=== PATIENT | male | born 1970 | race Caucasian/White ===

== ENCOUNTER 2016-09-05 01:51 | Emergency (ER) | payer OTHER ==
[~2016-09-05 01:51] MED LIST: HYDROXYZINE50 MG PO
[2016-09-05 02:02] VITALS: BP 121/80
--- NOTE | 2016-09-05 02:22 | ED EAR COMPLAINT ---
History of Present Illness General Chief Complaint: Ear Complaints Stated Complaint: RIGHT EAR PAIN Source: patient, family, old records Exam Limitations: no limitations Vital Signs & Intake/Output Vital Signs & Intake/Output Vital Signs Date Time Temp Pulse Resp B/P Pulse O2 O2 Flow FiO2 Ox Delivery Rate 09/05 0202 98.7 67 22 121/80 98 Allergies Coded Allergies: MDX - Poison Deloris Extract, Alum Prec (POISON DELORIS EXTRACT, ALUM PRECIPITAT) ( Intermediate, HIVES 05/23/15) Reconcile Medications Amoxicillin 875 MG TABLET 1 TAB PO BID sinusitis Ibuprofen 600 MG TABLET 1 TAB PO Q6PRN PRN pain with food Neomycin/Polymyxin B Sulf/Hc (Vsyopbkl-Ravdgxhof-Ok Ear Susp) 3.5 MG/ML-10,000 UNIT/ML-1 % DROPS.SUSP 4 GTT OT TID otitis externa Oxymetazoline HCl (Afrin) 0.05 % SPRAY 2 SPRAY NASB BID sinusitis Triage Note: PER PT RT EAR PAIN X 1.5 DAYS ACHY NO DRAINAGE Triage Nurses Notes Reviewed? yes Onset: 2 days Duration: day(s):, constant, continues in ED Timing: recent history Severity: moderate No Modifying Factors: none Associated Symptoms: cough HPI: 1 week prior to admission patient complains of nasal congestion. 2 days prior to admission patient complains of right ear pain sinus pressure sore throat with chronic tinnitus. He denies fever chills chest pain shortness of breath headache dysuria rash bleeding Past History Travel History Traveled to [place] past 21 day No Medical History Any Pertinent Medical History? see below for history Neurological: NONE EENT: NONE Cardiovascular: hypertension Respiratory: asthma, bronchitis Gastrointestinal: NONE Hepatic: NONE Renal: NONE Musculoskeletal: NONE Psychiatric: NONE Endocrine: NONE Surgical History Surgical History: non-contributory Psychosocial History What is your primary language Micronesian Tobacco Use: Current Not Daily Daily Tobacco Use Amount/Type: => 5 Cigarettes daily Family History Hx Contributory? No Review of Systems Review of Systems Constitutional: Reports: see HPI, malaise. EENTM: Reports: see HPI, ear pain, nasal congestion. Respiratory: Reports: see HPI, cough. Cardiovascular: Reports: no symptoms. GI: Reports: no symptoms. Genitourinary: Reports: no symptoms. Musculoskeletal: Reports: no symptoms. Skin: Reports: no symptoms. Neurological/Psychological: Reports: no symptoms. Hematologic/Endocrine: Reports: no symptoms. Immunologic/Allergic: Reports: no symptoms. All Other Systems: Reviewed and Negative Physical Exam Physical Exam General Appearance: well developed/nourished, alert, awake, anxious, mild distress Head: atraumatic Eyes: Bilateral: normal appearance, PERRL, EOMI. Ears: Left: canal normal, Tympanic normal. Right: erythema (EAC), swelling, Tympanic dull. Nose: discharge Mouth/Throat: pharynx swelling Neck: normal inspection, supple, lymphadenopathy (R), lymphadenopathy (L) Cardiovascular/Respiratory: normal breath sounds, regular rate/rhythm Back: normal inspection, normal range of motion Neurologic/Psych: awake, alert, oriented x 3, normal mood/affect Skin: intact, normal color, warm/dry Progress Differential Diagnoses I considered the following diagnoses in my evaluation of the patient: sinusitis OM OE Plan of Care: Current Medications Sig/Roger Start time Last Medication Dose Stop Time Status Admin Amoxicillin 750 MG ONCE ONE 09/05 229 UNVr (Amoxil) 09/05 230 Oxymetazoline HCl 2 SPRAY ONCE ONE 09/05 229 UNVr (Afrin) 09/05 230 Initial ED EKG: none Departure Departure Time of Disposition: 220 Disposition: HOME OR SELF CARE Condition: Stable Clinical Impression Primary Impression: Otitis media Qualifiers: Otitis media type: unspecified Laterality: right Chronicity: unspecified Qualified Code: H66.91 - Otitis media, unspecified, right ear Secondary Impressions: Otitis externa Qualifiers: Otitis externa type: unspecified type Laterality: right Chronicity: acute Qualified Code: H60.501 - Unspecified acute noninfective otitis externa, right ear Sinusitis, acute Qualifiers: Sinusitis location: unspecified location Recurrence: not specified as recurrent Qualified Code: J01.90 - Acute sinusitis, unspecified Referrals: JULIA SERRANO,JOB Gallagher (PCP/Family) Departure Forms: Customer Survey General Discharge Information Prescriptions: Current Visit Scripts Amoxicillin 1 TAB PO BID #20 TAB Neomycin/Polymyxin B Sulf/Hc (Mjflmixy-Qkugawkfc-Pg Ear Susp) 4 GTT OT TID #10 ML Ibuprofen 1 TAB PO Q6PRN PRN pain #50 TAB with food Oxymetazoline HCl (Afrin) 2 SPRAY NASB BID #30 ML
[2016-09-05] MEDS ORDERED: NEOMYCIN-POLYMY10 M1 OT (02:26)
[2016-09-05] MEDS ORDERED: AFRIN30 ML NASB (02:26)
[2016-09-05] MEDS ORDERED: IBUPROFEN600 M1 PO (02:26)
[2016-09-05] MEDS ORDERED: AMOXICILLIN875 M1 PO (02:26)
== END 2016-09-05 02:45 ==
LOC: ERH 01:51
DX: H66.91 Otitis media, unspecified, right ear (principal); H60.91 Unspecified otitis externa, right ear; J01.90 Acute sinusitis, unspecified; Z72.0 Tobacco use

== ENCOUNTER → 2016-09-10 | Day surgery (SDC) | payer OTHER ==
[~2016-09-10] VITALS: Ht 175.3 cm; Wt 93.0 kg
[~2016-09-10] MED LIST changes: +AFRIN30 ML NASB; +AMOXICILLIN875 M1 PO; +CYCLOBENZAPRINE5 M2 PO; +IBUPROFEN600 M1 PO; +IBUPROFEN800 M1 PO; +NEOMYCIN-POLYMY10 M1 OT
--- NOTE | 2016-09-10 04:55 | ED GI/GU/ABDOMINAL COMPLAINT ---
History of Present Illness General Chief Complaint: Abdominal Pain/Flank Pain Stated Complaint: ABD CRAMPS SINCE YEST PER PT Source: patient Exam Limitations: no limitations Vital Signs & Intake/Output Vital Signs & Intake/Output Vital Signs Date Time Temp Pulse Resp B/P Pulse O2 O2 Flow FiO2 Ox Delivery Rate 09/10 1533 100.7 85 16 123/77 98 Room Air 09/10 1133 98.3 79 18 124/75 96 Room Air 09/10 0659 99.7 87 18 137/82 98 Room Air 09/10 0425 97.2 103 18 143/96 98 Room Air Allergies Coded Allergies: poison amanda extract (Intermediate, HIVES 09/05/16) Reconcile Medications Amoxicillin 875 MG TABLET 1 TAB PO BID sinusitis Ibuprofen 600 MG TABLET 1 TAB PO Q6PRN PRN pain with food Neomycin/Polymyxin B Sulf/Hc (Vvafvnsu-Asqrpsweg-Mk Ear Susp) 3.5 MG/ML-10,000 UNIT/ML-1 % DROPS.SUSP 4 GTT OT TID otitis externa Oxymetazoline HCl (Afrin) 0.05 % SPRAY 2 SPRAY NASB BID sinusitis Triage Note: pain rt side abd started yesterday getting worse, nausea Triage Nurses Notes Reviewed? yes HPI: Patient presents for evaluation of right lower quadrant abdominal pain began abruptly yesterday about noon time. The pain is constant and sharp. Patient was taking amoxicillin for an ear infection and he discontinued this thinking that the amoxicillin was causing him the pain. However his pain persists. Patient's last bowel movement was yesterday and considered normal. Patient has felt nauseous but denies vomiting. Although the patient has felt chills he denies fever. The pain began in the right lower quadrant and did not migrate. There is no radiation of the pain. No prior abdominal surgeries. Patient states that in fact his episodes of abdominal pain of been present for 7 years. He states he has had multiple evaluation in emergency departments with no specific etiology determined. Patient typically gets treated with anti- inflammatory medications. (EMILIANO SERRANO,TRUE Roberts) Past History Travel History Traveled to [place] past 21 day No Medical History Any Pertinent Medical History? see below for history Neurological: NONE EENT: NONE Cardiovascular: hypertension Respiratory: asthma, bronchitis Gastrointestinal: NONE Hepatic: NONE Renal: NONE Musculoskeletal: NONE Psychiatric: NONE Endocrine: NONE Surgical History Surgical History: non-contributory Psychosocial History What is your primary language Irish Tobacco Use: Current Not Daily Family History Hx Contributory? No (EMILIANO SERRANO,TRUE Roberts) Review of Systems Review of Systems Constitutional: Reports: no symptoms. EENTM: Reports: no symptoms. Respiratory: Reports: no symptoms. Cardiovascular: Reports: no symptoms. GI: Reports: see HPI. Genitourinary: Reports: no symptoms. Musculoskeletal: Reports: no symptoms. Skin: Reports: no symptoms. Neurological/Psychological: Reports: no symptoms. Hematologic/Endocrine: Reports: no symptoms. Immunologic/Allergic: Reports: no symptoms. All Other Systems: Reviewed and Negative (EMILIANO SERRANO,TRUE Roberts) Physical Exam Physical Exam Gastrointestinal: SEE BELOW Comments: Gen.: Well-nourished, well-developed, no acute respiratory distress. Head: Normocephalic, atraumatic. Eyes: Normal inspection bilaterally Ears: Normal inspection bilaterally Nose: Normal inspection Throat/mouth : Moist mucosa Neck: Supple, full range of motion, no goiter Heart: Regular rate and rhythm, no murmurs rubs or gallops Lungs: Clear to auscultation bilaterally with normal air entry Chest: Nontender Back: Normal range of motion Abdomen: Soft, right lower quadrant abdominal tenderness without rebound or guarding, nondistended, normal bowel sounds, no palpable masses Extremities: Normal range of motion grossly, equal radial pulses, no cyanosis clubbing or edema Neurologic: Cranial nerves grossly intact, speech is clear Skin: warm and dry Psychiatric: Calm, cooperative, no apparent delusions or hallucinations (EMILIANO SERRANO,TRUE Roberts) Physical Exam Comments: Seen by surgery. To OR for appendectomy. Core Measures ACS in differential dx? No Severe Sepsis Present: No Septic Shock Present: No (PATRICIA QUINTANILLA MD) Progress Differential Diagnosis: appendicitis, biliary colic, hepatitis, inflamm bowel dis, pancreatitis, ureterolithiasis Plan of Care: Orders Procedure Date/time Status TROPONIN LEVEL 09/10 0910 Complete EKG 09/10 0909 Active URINALYSIS 09/10 0454 Complete THYROID STIMULATING HORMONE 09/10 0454 Complete LIPASE 09/10 0454 Complete COMPREHENSIVE METABOLIC PANEL 09/10 0454 Complete CBC WITHOUT DIFFERENTIAL 09/10 0454 Complete Current Medications Sig/Roger Start time Last Medication Dose Stop Time Status Admin Acetaminophen 1,000 MG ONCE ONE 09/10 1545 AC (Ofirmev) 09/10 1546 Laboratory Tests 09/10/16 1140: Troponin I < 0.01 09/10/16 0518: Anion Gap 14, Estimated GFR > 60, BUN/Creatinine Ratio 10.0, Glucose 101 H, Calcium 9.5, Total Bilirubin 0.6, AST 18, ALT 33, Alkaline Phosphatase 66, Total Protein 8.0, Albumin 4.6, Globulin 3.4, Albumin/Globulin Ratio 1.4, Lipase 163, TSH 1.960, CBC w Diff MAN DIFF ORDERED, RBC 4.55 L, MCV 92.3, MCH 31.1 H, RDW 13.8, MPV 7.6, Gran % 71.3, Lymphocytes % 18.1 L, Monocytes % 7.4, Eosinophils % 2.9, Basophils % 0.3, Absolute Granulocytes 14.0 H, Segmented Neutrophils 66, Absolute Lymphocytes 3.6 H, Lymphocytes 20 L, Monocytes 6, Absolute Monocytes 1.5 H, Eosinophils 6 H, Absolute Eosinophils 0.6, Basophils 2, Absolute Basophils 0.1, Platelet Estimate ADEQUATE, Polychromasia 1+, Poikilocytosis 1+, Ovalocytes 1+, Stomatocytes FEW, PUBS MCHC 33.7, Fld Total RBCs Counted 100 09/10/16 0511: Urinalysis LIGHT H, Urine Color YEL, Urine Clarity HAZY H, Urine pH 6.0, Ur Specific [place] >= 1.030, Urine Protein NEG, Urine Ketones NEG, Urine Nitrite NEG, Urine Bilirubin NEG, Urine Urobilinogen 0.2, Ur Leukocyte Esterase NEG, Ur Microscopic SEDIMENT EXAMINED, Urine RBC 3-5, Urine WBC 1-3 H, Ur Epithelial Cells FEW, Urine Mucus MOD H, Urine Hemoglobin MOD H, Urine Glucose NEG 09/10/16 0503: TSH Cancelled Diagnostic Imaging: Discussed w/RAD: CT Scan. Radiology Impression: PATIENT: CASA CHEUNG PRESENT AGE: 46 PATIENT ACCOUNT NO: [id number] : 71 LOCATION: [facility] ORDERING PHYSICIAN: TRUE CUMMINGS MD SERVICE DATE: 09/10/16 EXAM TYPE: CAT - CT ABD & PELVIS W IV CONTRAST EXAMINATION: CT ABDOMEN AND PELVIS WITH CONTRAST CLINICAL INFORMATION: Right lower quadrant abdominal pain and tenderness. COMPARISON: None available. TECHNIQUE: Multidetector volumetric imaging was performed of the abdomen and pelvis before and after the IV administration of 93 mL of Optiray 320 intravenous contrast. Sagittal and coronal reformatted images were obtained on the technologist's workstation. FINDINGS: The lung bases are clear. A small 2 mm low-density lesion within the left lobe of the liver is too small to characterize, statistically most likely a small cyst or hemangioma. The liver is otherwise normal. The spleen, adrenal glands, gallbladder, and pancreas are normal. The kidneys exhibit symmetric nephrograms without evidence of hydronephrosis or nephrolithiasis. A small low- density lesion within the posterior aspect of the left kidney is too small to characterize, statistically most likely a small cyst. The large and small bowel are normal in caliber without evidence of mechanical obstruction. No focal inflammatory changes adjacent to the large or the small bowel. The appendix is mildly enlarged, measuring up to 8 to 9 mm in size without adjacent periappendiceal inflammatory changes. Early appendicitis would be difficult to exclude. No appendicolith. There is no free air and there is no intra-abdominal free fluid. No mesenteric or retroperitoneal adenopathy. The pelvic viscera are normal. No pelvic adenopathy. No free fluid within the pelvis. There are no acute osseous abnormalities. Hemangioma within the T9 vertebral body No significant soft tissue abnormality. IMPRESSION: The appendix is mildly enlarged without adjacent periappendiceal inflammatory changes. Early appendicitis would be difficult to exclude. No appendicolith. No additional acute findings. DICTATED BY: TRUE EUBANKS MD DATE/TIME DICTATED:09/10/16620 POTATO SORTER:FRANCES DATE/TIME TRANSCRIBED:09/10/16620 CONFIDENTIAL, DO NOT COPY WITHOUT APPROPRIATE AUTHORIZATION. <Electronically signed in Other Vendor System> SIGNED BY: TRUE EUBANKS MD 09/10/16 0636 Initial ED EKG: none Comments: 09/10/2016 7:24:40 AM I have updated Casa on his test results. Patient's case discussed with Dr. Mohamud who will evaluate the patient for possible early appendicitis. Patient signed out to Dr. Quintanilla. (EMILIANO SERRANO,TRUE Roberts) Initial ED EKG: normal axis, normal intervals, normal p-waves, normal QRS complex, normal sinus rhythm, no ST T wave changes Rhythm Strip: normal sinus rhythm (DWIGHT SERRANO,PATRICIA) Departure Departure Condition: Stable Referrals: JULIA SERRANO,JOB Gallagher (PCP/Family) Departure Forms: Customer Survey General Discharge Information (EMILIANO SERRANO,TRUE Roberts) Departure Time of Disposition: 1013 Disposition: STILL A PATIENT Clinical Impression Primary Impression: Appendicitis, acute Qualifiers: Acute appendicitis type: with localized peritonitis Qualified Code: K35.3 - Acute appendicitis with localized peritonitis Secondary Impressions: Leukocytosis Qualifiers: Leukocytosis type: unspecified Qualified Code: D72.829 - Elevated white blood cell count, unspecified OR/GI Note Spoke With: DAYRON SERRANO,JANET Oleary ED Treatment Decision: CASA CHEUNG requires urgent operative management or an emergent procedure that cannot be performed in the Emergency Room setting. Transport To: [facility] (PATRICIA QUINTANILLA MD) Departure Comments 09/10/16 3 pm The patient was signed out to me by Dr. Quintanilla He is pending appendectomy. (TRUE BOWIE DO) (PATRICIA QUINTANILLA MD)
[2016-09-10 05:26] LABS: ABSOLUTE BASOPHIL COUNT 0.1 /CUMM (0.0-0.2); ABSOLUTE EOSINOPHIL COUNT 0.6 /CUMM (0.0-0.7); ABSOLUTE LYMPH COUNT 3.6 /CUMM (1.2-3.4); ABSOLUTE MONOCYTE COUNT 1.5 /CUMM (0.10-0.60); BASOPHIL % 0.3 % (0.0-2.0); EOSINOPHIL % 2.9 % (0-5); GRANULOCYTE % 71.3 % (42.2-75.2); MEAN CORPUSCULAR HGB 31.1 PG (27.0-31.0); MEAN CORPUSCULAR HGB CONC 33.7 G/DL (33.0-37.0); MEAN CORPUSCULAR VOLUME 92.3 FL (80.0-94.0); MEAN PLATELET VOLUME 7.6 FL (7.4-10.4); PLATELET COUNT 358 /CUMM (130-400); RBC DISTRIBUTION WIDTH 13.8 % (11.5-14.5); RED BLOOD CELL CT 4.55 /CUMM (4.70-6.10); WHITE BLOOD CELL COUNT 19.7 /CUMM (4.8-10.8)
--- NOTE | 2016-09-10 06:36 | CT SCAN REPORT ---
EXAMINATION: CT ABDOMEN AND PELVIS WITH CONTRAST CLINICAL INFORMATION: Right lower quadrant abdominal pain and tenderness. COMPARISON: None available. TECHNIQUE: Multidetector volumetric imaging was performed of the abdomen and pelvis before and after the IV administration of 93 mL of Optiray 320 intravenous contrast. Sagittal and coronal reformatted images were obtained on the technologist's workstation. FINDINGS: The lung bases are clear. A small 2 mm low-density lesion within the left lobe of the liver is too small to characterize, statistically most likely a small cyst or hemangioma. The liver is otherwise normal. The spleen, adrenal glands, gallbladder, and pancreas are normal. The kidneys exhibit symmetric nephrograms without evidence of hydronephrosis or nephrolithiasis. A small low-density lesion within the posterior aspect of the left kidney is too small to characterize, statistically most likely a small cyst. The large and small bowel are normal in caliber without evidence of mechanical obstruction. No focal inflammatory changes adjacent to the large or the small bowel. The appendix is mildly enlarged, measuring up to 8 to 9 mm in size without adjacent periappendiceal inflammatory changes. Early appendicitis would be difficult to exclude. No appendicolith. There is no free air and there is no intra-abdominal free fluid. No mesenteric or retroperitoneal adenopathy. The pelvic viscera are normal. No pelvic adenopathy. No free fluid within the pelvis. There are no acute osseous abnormalities. Hemangioma within the T9 vertebral body No significant soft tissue abnormality. IMPRESSION: The appendix is mildly enlarged without adjacent periappendiceal inflammatory changes. Early appendicitis would be difficult to exclude. No appendicolith. No additional acute findings.
--- NOTE | 2016-09-10 08:49 | History & Physical Pre-Op ---
General Information and HPI MD Statement: I have seen and personally examined JOSÉ CHEUNG and documented this H&P. The patient is a 46 year old M who presented with a patient stated chief complaint of [ABDOMINAL CRAMPING AND PAIN]. Source of Information: patient Exam Limitations: no limitations History of Present Illness: Patient presents to the ER today with complaints of abdominal pain focusing mainly in the right lower quadrant. He states that over the course of the past 7 years he has had this pain on and off. Each time the pain subsided with the use of anti-inflammatory medication. He states that starting yesterday the pain returned but felt different than previous times. He noted along with the discomfort some pain, chills, fatigue and general malaise. He denies vomiting, but acknowledges occasional bouts of nausea. He moved his bowels yesterday and he describes them as normal. He does not recall any recent diarrhea. He was treated approximately one week ago for a bacterial sinusitis and given amoxicillin. He discontinued his use of amoxicillin because he felt that that may be contributory to his abdominal pain. Despite discontinuing the antibiotics his abdominal pain worsened. He also mentioned that he has a history of chest discomfort for which he has been evaluated in the past. He states that on occasion with this abdominal discomfort he has experienced some stabbing discomfort in the left side of his chest. Allergies/Medications Allergies: Coded Allergies: poison amanda extract (Intermediate, HIVES 09/05/16) Home Med list Amoxicillin 875 MG TABLET 1 TAB PO BID sinusitis Ibuprofen 600 MG TABLET 1 TAB PO Q6PRN PRN pain with food Neomycin/Polymyxin B Sulf/Hc (Wljlgioq-Lkhzueyzp-Iu Ear Susp) 3.5 MG/ML-10,000 UNIT/ML-1 % DROPS.SUSP 4 GTT OT TID otitis externa Oxymetazoline HCl (Afrin) 0.05 % SPRAY 2 SPRAY NASB BID sinusitis Past History Medical History Neurological: NONE EENT: NONE Cardiovascular: hypertension Respiratory: asthma, bronchitis Gastrointestinal: NONE Hepatic: NONE Renal: NONE Musculoskeletal: NONE Psychiatric: NONE Endocrine: NONE Surgical History Pertinent Surgical History: non-contributory Review of Systems Review of Systems Constitutional: Reports: see HPI, chills, malaise. EENTM: Reports: see HPI. Cardiovascular: Reports: no symptoms. Respiratory: Reports: no symptoms. GI: Reports: see HPI, nausea. Genitourinary: Reports: no symptoms. Musculoskeletal: Reports: no symptoms. Skin: Reports: no symptoms. Neurological/Psychological: Reports: no symptoms. Hematologic/Endocrine: Reports: no symptoms. Immunologic/Allergic: Reports: no symptoms. All Other Systems: Reviewed and Negative Exam & Diagnostic Data Last 24 Hrs of Vital Signs/I&O Vital Signs Date Time Temp Pulse Resp B/P Pulse O2 O2 Flow FiO2 Ox Delivery Rate 09/10 0659 99.7 87 18 137/82 98 Room Air 09/10 0425 97.2 103 18 143/96 98 Room Air Intake & Output 09/10 1600 09/10 0800 09/10 0000 Intake Total Output Total Balance Patient 205 lb Weight Last 24 Hrs of Labs/Nilson: Laboratory Tests 09/10/16 0518: Anion Gap 14, Estimated GFR > 60, BUN/Creatinine Ratio 10.0, Glucose 101 H, Calcium 9.5, Total Bilirubin 0.6, AST 18, ALT 33, Alkaline Phosphatase 66, Total Protein 8.0, Albumin 4.6, Globulin 3.4, Albumin/Globulin Ratio 1.4, Lipase 163, TSH 1.960, CBC w Diff MAN DIFF ORDERED, RBC 4.55 L, MCV 92.3, MCH 31.1 H, RDW 13.8, MPV 7.6, Gran % 71.3, Lymphocytes % 18.1 L, Monocytes % 7.4, Eosinophils % 2.9, Basophils % 0.3, Absolute Granulocytes 14.0 H, Segmented Neutrophils 66, Absolute Lymphocytes 3.6 H, Lymphocytes 20 L, Monocytes 6, Absolute Monocytes 1.5 H, Eosinophils 6 H, Absolute Eosinophils 0.6, Basophils 2, Absolute Basophils 0.1, Platelet Estimate ADEQUATE, Polychromasia 1+, Poikilocytosis 1+, Ovalocytes 1+, Stomatocytes FEW, PUBS MCHC 33.7, Fld Total RBCs Counted 100 09/10/16 0511: Urinalysis LIGHT H, Urine Color YEL, Urine Clarity HAZY H, Urine pH 6.0, Ur Specific [place] >= 1.030, Urine Protein NEG, Urine Ketones NEG, Urine Nitrite NEG, Urine Bilirubin NEG, Urine Urobilinogen 0.2, Ur Leukocyte Esterase NEG, Ur Microscopic SEDIMENT EXAMINED, Urine RBC 3-5, Urine WBC 1-3 H, Ur Epithelial Cells FEW, Urine Mucus MOD H, Urine Hemoglobin MOD H, Urine Glucose NEG 09/10/16 0503: TSH Cancelled Diagnostic Data Other Results PATIENT: JOSÉ CHEUNG PRESENT AGE: 46 PATIENT ACCOUNT NO: [id number] : 71 LOCATION: [facility] ORDERING PHYSICIAN: TRUE CUMMINGS MD SERVICE DATE: 09/10/163 EXAM TYPE: CAT - CT ABD & PELVIS W IV CONTRAST EXAMINATION: CT ABDOMEN AND PELVIS WITH CONTRAST CLINICAL INFORMATION: Right lower quadrant abdominal pain and tenderness. COMPARISON: None available. TECHNIQUE: Multidetector volumetric imaging was performed of the abdomen and pelvis before and after the IV administration of 93 mL of Optiray 320 intravenous contrast. Sagittal and coronal reformatted images were obtained on the technologist's workstation. FINDINGS: The lung bases are clear. A small 2 mm low-density lesion within the left lobe of the liver is too small to characterize, statistically most likely a small cyst or hemangioma. The liver is otherwise normal. The spleen, adrenal glands, gallbladder, and pancreas are normal. The kidneys exhibit symmetric nephrograms without evidence of hydronephrosis or nephrolithiasis. A small low-density lesion within the posterior aspect of the left kidney is too small to characterize, statistically most likely a small cyst. The large and small bowel are normal in caliber without evidence of mechanical obstruction. No focal inflammatory changes adjacent to the large or the small bowel. The appendix is mildly enlarged, measuring up to 8 to 9 mm in size without adjacent periappendiceal inflammatory changes. Early appendicitis would be difficult to exclude. No appendicolith. There is no free air and there is no intra-abdominal free fluid. No mesenteric or retroperitoneal adenopathy. The pelvic viscera are normal. No pelvic adenopathy. No free fluid within the pelvis. There are no acute osseous abnormalities. Hemangioma within the T9 vertebral body No significant soft tissue abnormality. IMPRESSION: The appendix is mildly enlarged without adjacent periappendiceal inflammatory changes. Early appendicitis would be difficult to exclude. No appendicolith. No additional acute findings. DICTATED BY: TRUE EUBANKS MD DATE/TIME DICTATED:09/10/16620 WET SILK HANGER:FRANCES DATE/TIME TRANSCRIBED:09/10/16620 CONFIDENTIAL, DO NOT COPY WITHOUT APPROPRIATE AUTHORIZATION. <Electronically signed in Other Vendor System> SIGNED BY: TRUE EUBANKS MD 09/10/16 0636 Assessment/Plan Assessment/Plan: This is a 46-year-old male with a past medical history significant for hypertension and hyperlipidemia, noncompliant with meds. He presents today with a 2 day complaint of worsening right lower quadrant abdominal pain. He acknowledges with this discomfort malaise and chills. CT scan obtained earlier this morning is suggestive of early appendicitis. Unasyn 3 g to be given intravenously Morphine for pain Nothing by mouth chest x-ray preop EKG preop Will discuss with Dr. Jose Mohamud As Ranked By This Provider Problem List: 1. Abdominal pain
--- NOTE | 2016-09-10 09:55 | RADIOLOGY REPORT ---
EXAMINATION: XR PORTABLE CHEST CLINICAL INFORMATION: Abdominal pain, preoperative COMPARISON: 06/09/2010 TECHNIQUE: Portable view of the chest was obtained. FINDINGS: The lungs are clear with no focal consolidation. No evidence of pneumothorax, pulmonary edema, or pleural effusions. The cardiomediastinal silhouette is unremarkable. No acute osseous findings. IMPRESSION: No acute cardiopulmonary findings.
[2016-09-10 16:28] VITALS: BP 132/82
--- NOTE | 2016-09-10 17:49 | Operative Report ---
Operative/Inv Procedure Report Surgery Date: 09/10/16 Name of Procedure: Laparoscopic appendectomy Pre-Operative Diagnosis: Appendicitis Post-Operative Diagnosis: Appendicitis Estimated Blood Loss: less than 10cc Surgeon/Communication Technician: Jose Jordan PA-C Anesthesia: general endotracheal tube IV Fluids: LR Urine Output: n/a Drains: none Specimens: appendix Microbiology: n/a Complications: none Condition: stable Operative Indication: Patient's a 46-year-old male who presented to the emergency room with right lower quadrant pain he has a chronic history of right lower quadrant pain was resolved on its own and this time it was different and the fact that it was more intense and not resolving. CT scan did not show any inflammatory changes but showed an appendix that was a larger than expected and early appendicitis could not be ruled out patient's exam was consistent with acute appendicitis with tenderness at McBurney's point. A little unusual was that he had an elevated white count to 19,000 and some low-grade fever and without inflammatory changes on the CT scan the considered other etiologies but did not see any evidence of kidney stone pneumonia infection or other etiologies to explain the fever white count this was discussed with the patient he has consented to surgery we discussed risks versus benefits and possible complications including but not limited to bleeding infection. Operative/Procedure Note Note: After informed consent and proper identification the patient was taken the operating room placed on the operating room table in the supine position Venodyne stockings were applied and the underwent a general endotracheal anesthetic abdomen was prepped and draped in normal sterile fashion infraumbilical incision was made through the skin and subcutaneous tissue there is a small amount of preperitoneal fat at the umbilicus and a very small umbilical hernia defect approximately 2 mm remove the fatty tissue and then placed a Shannan clamp and the defect and spread the defect open wide enough that we could fit a 10 mm blunt port cannula through the defect we used Percent Marcaine to anesthetize the tissue surrounding the area. We insufflated the abdomen with 14 mm CO2 pressure we had excellent visualization we placed 2 additional 5 mm trochars in the left lower quadrant there was no evidence of purulent material or free fluid in the abdomen the small bowel liver and gallbladder all looked normal. The appendix was definitely pale looking dilated and adjacent to the mesial appendix was a piece of infarcted fat no bigger than a centimeter. We dressed the appendix with a endo-Kleber and elevated it we divided the mesoappendix with the LigaSure device down to the base of the cecum the base of the cecum with the appendix was very soft we used an Endo KATERIN sims 45 stapler to divide across the appendix there was no bleeding from the staple line. We placed the appendix in an Endo Catch bag and pulled it out through the infraumbilical port we removed all trochars we closed the infraumbilical fascia with an interrupted [id number] 0 Vicryl suture. We closed skin incisions with 4-0 Monocryl subcuticular stitches Steri-Strips and dry sterile dressings were placed. Patient tolerated the procedure without complications was extubated and taken the recovery room in stable condition
== END ==
LOC: ERH 04:19 → STS 16:31 → ERH 21:15
PROVIDERS: Emergency Medicine
DX: K35.80 Unspecified acute appendicitis (principal); J45.909 Unspecified asthma, uncomplicated; I10 Essential (primary) hypertension
CPT/HCPCS: 1263; 74177; 81001; 88304; 93005; 93010; 96365; 96375; J0131; J1100; J1170; J1885; J2175; J2250; J2405; J3010; J7042

== ENCOUNTER 2016-12-03 10:00 | Emergency (ER) | payer OTHER ==
[~2016-12-03] VITALS: Ht 172.7 cm; Wt 90.7 kg
[~2016-12-03 10:00] MED LIST changes: -CYCLOBENZAPRINE5 M2 PO; -IBUPROFEN800 M1 PO
[2016-12-03 10:10] VITALS: BP 141/99
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
[2016-12-03] MEDS ORDERED: IBUPROFEN800 M1 PO (10:22)
[2016-12-03] MEDS ORDERED: CYCLOBENZAPRINE5 M2 PO (10:22)
== END 2016-12-03 10:25 ==
LOC: ERH 10:00
DX: S16.1XXA Strain of muscle, fascia and tendon at neck level, initial encounter (principal); V49.40XA Driver injured in collision with unspecified motor vehicles in traffic accident, initial encounter; Y93.9 Activity, unspecified; Y92.488 Other paved roadways as the place of occurrence of the external cause

== ENCOUNTER 2018-03-08 13:38 | Inpatient (IN) | payer OTHER ==
[~2018-03-08] VITALS: Ht 172.7 cm; Wt 93.9 kg
[~2018-03-08 13:38] MED LIST changes: +CYCLOBENZAPRINE5 M2 PO; +IBUPROFEN800 M1 PO
[2018-03-08] MEDS ORDERED: LISINOPRIL40 M1 PO (15:07)
[2018-03-08] MEDS ORDERED: CHLORTHALIDONE25 M1 PO (15:14)
--- NOTE | 2018-03-08 15:23 | ED GENERAL ADULT ---
History of Present Illness General Chief Complaint: General Adult Stated Complaint: ABD PAIN, GROIN PAIN Source: patient Exam Limitations: no limitations Vital Signs & Intake/Output Vital Signs & Intake/Output Vital Signs Date Time Temp Pulse Resp B/P B/P Pulse O2 O2 Flow FiO2 Mean Ox Delivery Rate 03/08 2255 99.6 71 18 130/70 96 03/08 2109 99.4 70 20 127/61 98 Room Air 03/08 1933 98.8 71 16 130/77 98 Room Air 03/08 1932 98.8 03/08 1806 99.9 87 18 142/74 99 Room Air 03/08 1646 100.1 90 18 144/88 98 Room Air 03/08 1539 99 Room Air 03/08 1351 100.9 112 16 155/96 97 Room Air Allergies Coded Allergies: poison amanda extract (Intermediate, HIVES 09/05/16) Reconcile Medications Chlorthalidone 25 MG TABLET 1 TAB PO DAILY WATER RETENTION (Reported) Lisinopril 40 MG TABLET 1 TAB PO DAILY HEART HEALTH (Reported) Triage Note: PT TO ED C/O LT TESTICULAR PAIN WORSE WITH PALPATION. STATES THAT PAIN RADIATES UP INTO HIS LLQ AND PAIN IS BETTER WITH PALPATION TO LLQ. UNSURE IF TESTICULE IS SWOLLEN. Triage Nurses Notes Reviewed? yes Onset: Abrupt Duration: hour(s): (3), constant, continues in ED, getting worse Timing: single episode today Injury Environment: home Severity: moderate, severe Severity Numbers: 7 No Modifying Factors: none HPI: 47 year male history of hypertension presents for evaluation of acute onset of left testicular pain radiating into the left groin and left lower quadrant. Patient states symptoms started abruptly while he was getting out of his car several hours prior to admission. The pain is located in the left testicle and radiates up into the abdomen. He's never had this before. He denies any swelling the testicles no penile discharge frequency urgency or dysuria. He denies chest pain shortness of breath. He has had body aches sweats and chills. He also reports some associated nausea and vomiting intermittently over the past several weeks. Denies any alcohol use. No recent abdominal surgeries no recent urologic procedures. No difficulty urinating. (To Amos) Past History Travel History Traveled to [place] past 21 day No Medical History Any Pertinent Medical History? see below for history Neurological: NONE EENT: NONE Cardiovascular: hypertension Respiratory: asthma, bronchitis Gastrointestinal: NONE Hepatic: NONE Renal: NONE Musculoskeletal: NONE Psychiatric: NONE Endocrine: NONE Surgical History Surgical History: non-contributory Psychosocial History What is your primary language Chinese Tobacco Use: Never used Family History Hx Contributory? No (To Amos) Review of Systems Review of Systems Constitutional: Reports: no symptoms. EENTM: Reports: no symptoms. Respiratory: Reports: no symptoms. Cardiovascular: Reports: no symptoms. GI: Reports: see HPI, abdominal pain, nausea. Genitourinary: Reports: see HPI, pain. Musculoskeletal: Reports: no symptoms. Skin: Reports: no symptoms. Neurological/Psychological: Reports: no symptoms. Hematologic/Endocrine: Reports: no symptoms. Immunologic/Allergic: Reports: no symptoms. All Other Systems: Reviewed and Negative (To Amos) Physical Exam Physical Exam General Appearance: well developed/nourished, no apparent distress, alert, awake Head: atraumatic, normal appearance Eyes: Bilateral: normal appearance, PERRL, EOMI. Ears, Nose, Throat: hearing grossly normal Neck: normal inspection, supple, full range of motion Respiratory: normal breath sounds, chest non-tender, no respiratory distress, lungs clear Cardiovascular: regular rate/rhythm, normal peripheral pulses Peripheral Pulses: 2+ radial (R), 2+ radial (L) Gastrointestinal: normal bowel sounds, soft, non-tender, no organomegaly Back: normal inspection, normal range of motion, no vertebral tenderness Extremities: normal inspection, normal capillary refill, normal range of motion, no edema Neurologic/Psych: no motor/sensory deficits, awake, alert, oriented x 3, normal gait, normal mood/affect Skin: intact, normal color, warm/dry Lymphatic: no anterior cervical herman Comments: Genital exam: there is no swelling erythema or crepitus to the scrotum or penis. No penile discharge no penile lesions. There is tender to palpation of the left testicle. No palpated hernias Core Measures ACS in differential dx? No CVA/TIA Diagnosis: No Sepsis Present: No Sepsis Focused Exam Completed? Yes (To Amos) Progress Differential Diagnoses I considered the following diagnoses in my evaluation of the patient: [UTI, STD, testicular torsion, epididymitis, orchitis, strangulate hernia, diverticulitis, prostatitis, kidney stone, pyelonephritis] Plan of Care: Orders Procedure Date/time Status Heart Healthy Diet 03/09 B Active CBC WITHOUT DIFFERENTIAL 03/09 600 Active BASIC ELECTROLYTES PLUS BUN&CR 03/09 600 Active Pathway - chart 03/08 2236 Active Patient Data 03/08 2012 Active OXYGEN SETUP (GEN) 03/08 1932 Active Saline Lock 03/08 1932 Active Admit to inpatient 03/08 1932 Active Vital Signs 03/08 1932 Active Activity/Ambulation 03/08 1932 Active Code Status 03/08 193 Active Add-on Test (ER Only) 03/08 1830 Active LACTIC ACID 03/08 1748 Active Add-on Test (ER Only) 03/08 1655 Active CULTURE,URINE 03/08 1629 Active ETHANOL 03/08 1629 Complete Intake & Output 03/08 1502 Active CHLAMYDIA-GC DNA PROBE 03/08 1502 Active BLOOD CULTURE 03/08 1448 Active URINALYSIS 03/08 1448 Complete TROPONIN LEVEL 03/08 1448 Complete LIPASE 03/08 1448 Complete LACTIC ACID 03/08 1448 Complete COMPREHENSIVE METABOLIC PANEL 03/08 1448 Complete CBC WITHOUT DIFFERENTIAL 03/08 1448 Complete House Staff 03/08 UNK Active VTE Mechanical Prophylaxis 03/08 UNK Active Vital Signs 03/08 UNK Active Current Medications Sig/Roger Start time Last Medication Dose Stop Time Status Admin Ceftriaxone Sodium 1,000 MG DAILY 03/09 09 AC (Rocephin) Enoxaparin Sodium 40 MG DAILY 03/09 09 AC (Lovenox) Laboratory Tests 03/08/18 1629: Anion Gap 16, Estimated GFR > 60, BUN/Creatinine Ratio 15.0, Glucose 98, Lactic Acid 1.4, Calcium 9.8, Total Bilirubin 0.3, AST 20, ALT 30, Alkaline Phosphatase 80, Troponin I < 0.01, Total Protein 8.1, Albumin 4.8, Globulin 3.3, Albumin/ Globulin Ratio 1.5, Lipase 1237 H, CBC w Diff MAN DIFF ORDERED, RBC 4.70, MCV 91.3, MCH 30.9, MCHC 33.8, RDW 13.5, MPV 7.9, Gran % 53.9, Lymphocytes % 21.4, Monocytes % 5.6, Eosinophils % 18.8 H, Basophils % 0.3, Absolute Granulocytes 11.2 H, Segmented Neutrophils 56, Absolute Lymphocytes 4.5 H, Lymphocytes 20 L, Monocytes 4, Absolute Monocytes 1.2 H, Eosinophils 20 H, Absolute Eosinophils 3.9, Absolute Basophils 0.1, Platelet Estimate VERIFIED BY SMEAR, Normocytic RBCs VERIFIED, Normochromic RBCs VERIFIED, Fld Total RBCs Counted 100 , Serum Alcohol < 10.0, Urinalysis LIGHT H, Urine Color YEL, Urine Clarity HAZY H, Urine pH 6.0, Ur Specific [place] 1.015, Urine Protein TRACE H, Urine Ketones NEG, Urine Nitrite NEG, Urine Bilirubin NEG, Urine Urobilinogen 0.2, Ur Leukocyte Esterase LARGE H, Ur Microscopic SEDIMENT EXAMINED, Urine RBC 15-25 H, Urine WBC > 75 H, Ur Epithelial Cells FEW, Urine Bacteria FEW H, Urine Hemoglobin LARGE H, Urine Glucose NEG Microbiology 03/08 1629 URINE ROUT: Urine Culture - RECD 03/08 1629 URINE ROUT: GC DNA Probe - RECD 03/08 1629 URINE ROUT: Chlamydia DNA Probe (JUSTYNA) - RECD 03/08 1629 BLOOD: Blood Culture - RECD 03/08 1448 BLOOD: Blood Culture - ORD Patient is here reporting acute onset of left testicular pain. On exam he does have tenderness to palpation of the testicle. His vital signs reveal a low- grade temperature and tachycardia. Labs fluids Toradol ordered. Ultrasound and CT scans ordered. A gonorrhea complete testing ordered. Testicular ultrasound is negative. CT scan is negative. Blood work shows a significant elevated white blood cell count of 20,000 with left shift. Lipase is also elevated 100. Urine is showing signs of infection culture ordered. Patient may have prostatitis versus epididymitis. Rocephin was ordered. Patient will be admitted to the hospital for further evaluation and treatment. Case discussed with Dr. QUINTANILLA he agrees. Diagnostic Imaging: Viewed by Me: Ultrasound. Discussed w/RAD: Ultrasound. Radiology Impression: PATIENT: JOSÉ CHEUNG PRESENT AGE: 47 PATIENT ACCOUNT NO: [id number] : 71 LOCATION: [facility] ORDERING PHYSICIAN: To DANIELLE SERVICE DATE: 03/08/18-1501 EXAM TYPE: US - US-TESTICULAR EXAMINATION: US SCROTUM CLINICAL INFORMATION: Left-sided testicular pain. Evaluate for torsion or epididymitis. COMPARISON: None TECHNIQUE: A sonogram of the scrotum was performed assessing win-scale appearance and color Doppler flow. FINDINGS: RIGHT: The right testicle has normal size, contour and echotexture; it measures 4.8 x 2.5 x 3.2 cm. No testicular microlithiasis or mass. Color Doppler images with spectral waveforms show presence of normal arterial and venous flow within the testicle. The epididymis is normal in size. A cyst within the epididymal head measures up to 0.4 cm. Small right hydrocele. LEFT: The left testicle has normal size, contour and echotexture; it measures 4.1 x 2.1 x 3.2 cm. No testicular microlithiasis or mass. Color Doppler images with spectral waveforms show presence of normal arterial and venous flow within the testicle. The epididymis is normal in size. Small cyst within the epididymal head measures up to 0.4 cm. Also, there is a 0.5 cm cyst of the appendix of the epididymis. Small hydrocele is present. The scrotal veins are in the normal size range. No evidence of inguinal hernia. IMPRESSION: 1. No acute findings within either testicle. No evidence of testicular torsion, orchitis or epididymitis. 2. Small bilateral hydroceles. 3. Small cysts of each epididymal head. DICTATED BY: Timothy Mccarthy MD DATE/TIME DICTATED:03/08/181610 INSTRUCTIONAL WRITER:FRANCES DATE/TIME TRANSCRIBED:1610 CONFIDENTIAL, DO NOT COPY WITHOUT APPROPRIATE AUTHORIZATION., PATIENT: JOSÉ CHEUNG PRESENT AGE: 47 PATIENT ACCOUNT NO : [id number] : 71 LOCATION: [facility] ORDERING PHYSICIAN: To DANIELLE SERVICE DATE: 03/08/18 EXAM TYPE: CAT - CT ABD & PELVIS W IV CONTRAST EXAMINATION: CT ABDOMEN AND PELVIS WITH CONTRAST CLINICAL INFORMATION: Left groin pain and fever. Differential diagnosis includes hernia, diverticulitis and colitis. COMPARISON: 09/10/2016 TECHNIQUE: Multidetector volumetric imaging was performed of the abdomen and pelvis following IV administration of 95 mL of Optiray 320 intravenous contrast. Sagittal and coronal reformatted images were obtained on the technologist's workstation. DLP: 508.73 mGy-cm FINDINGS: LUNG BASES: The visualized lung bases are unremarkable. LIVER, GALLBLADDER, AND BILIARY TREE: The liver is normal in size, shape, and attenuation. No biliary ductal dilatation is present. A few scattered hypodensities within the hepatic parenchyma are unchanged and nonspecific, most likely relating to small cysts or hemangiomas. The gallbladder is unremarkable with no evidence of radiopaque gallstones, gallbladder wall thickening, or obvious pericholecystic inflammatory changes. PANCREAS: Unremarkable. SPLEEN: Unremarkable. ADRENAL GLANDS: Unremarkable. KIDNEYS AND URETERS: The kidneys are normal in size, shape, and attenuation. No hydronephrosis, hydroureter, or calculi seen. No perinephric stranding. Unchanged tiny hypodensity within the posterior cortex of the left kidney is too small to characterize. BLADDER: Unremarkable. GASTROINTESTINAL TRACT: The small and large bowel are unremarkable. The appendix is surgically absent. ABDOMINAL WALL: No significant hernia is appreciated. LYMPH NODES: Normal. VASCULAR: Minimal atherosclerosis abdominal aorta without evidence of aneurysm. PELVIC VISCERA: Calcifications of the prostate gland. No free fluid. OSSEOUS STRUCTURES: Degenerative changes of the spine including increasing Schmorl's nodes at L4. Hemangioma at T9 is again appreciated. No acute or suspicious osseous abnormality. IMPRESSION: 1. No evidence of acute abnormality within the abdomen or pelvis. 2. Tiny hypodensities within the liver and left kidney are unchanged. Although these are all too small to characterize, statistically they most likely represent small cysts or within the liver they could also represent small hemangiomas. DICTATED BY: Renee Jang MD DATE/TIME DICTATED:03/08/181803 INSTRUCTIONAL WRITER:FRANCES DATE/TIME TRANSCRIBED:1803 CONFIDENTIAL, DO NOT COPY WITHOUT APPROPRIATE AUTHORIZATION. < Electronically signed in Other Vendor System> SIGNED BY: Renee Jang MD 1833 Initial ED EKG: none (To Amos) ED Sepsis Exam Date of Focused Sepsis Exam: 03/08/18 Time of Focused Sepsis Exam: 2000 Sepsis Cardiac Exam: Tachycardia Sepsis Resp Exam: CTA Sepsis Cap Refill Exam: <2 Sec Sepsis Peripheral Pulse Exam: Normal Sepsis Peripheral Pulse Location: Radial Sepsis Skin Color Exam: Normal for Ethnicity Skin Temp/Moisture Exam: Warm/Dry (To Amos) Departure Departure Disposition: STILL A PATIENT Condition: Stable Clinical Impression Primary Impression: Acute bacterial prostatitis Secondary Impressions: Pancreatitis Qualifiers: Chronicity: acute Pancreatitis type: unspecified pancreatitis type Acute pancreatitis complication: unspecified Qualified Code: K85.90 - Acute pancreatitis without necrosis or infection, unspecified Referrals: Celia SERRANO,Modesta Saab (PCP/Family) Departure Forms: Customer Survey General Discharge Information Admission Note Spoke With: Adeola Donovan MD Documentation of Exam: Documentation of any treatments & extenuating circumstances including Concerns Regarding Discharge (functional status, medication knowledge or non-compliance, living conditions, etc.) that warrant an admission rather than observation: [IV fluids, IV antibiotics, serial labs, follow up urine cultures, monitoring of vital signs] (To Amos) PA/CUSTOMS BROKERAGE MANAGER Co-Sign Statement Statement: ED Attending supervision documentation- x I saw and evaluated the patient. I have also reviewed all the pertinent lab results and diagnostic results. I agree with the findings and the plan of care as documented in the PA's/CUSTOMS BROKERAGE MANAGER's documentation. Inguinal pain, dysuria with leukocytosis, fever: acute prostatitis [] I have reviewed the ED Record and agree with the PA's/CUSTOMS BROKERAGE MANAGER's documentation. [] Additions or exceptions (if any) to the PAs/CUSTOMS BROKERAGE MANAGER's note and plan are summarized below: [] (Juan SERRANO,Shon) Critical Care Note Critical Care Note Critical Care Time: non-applicable (To Amos)
--- NOTE | 2018-03-08 16:20 | ULTRASOUND REPORT ---
EXAMINATION: US SCROTUM CLINICAL INFORMATION: Left-sided testicular pain. Evaluate for torsion or epididymitis. COMPARISON: None TECHNIQUE: A sonogram of the scrotum was performed assessing win-scale appearance and color Doppler flow. FINDINGS: RIGHT: The right testicle has normal size, contour and echotexture; it measures 4.8 x 2.5 x 3.2 cm. No testicular microlithiasis or mass. Color Doppler images with spectral waveforms show presence of normal arterial and venous flow within the testicle. The epididymis is normal in size. A cyst within the epididymal head measures up to 0.4 cm. Small right hydrocele. LEFT: The left testicle has normal size, contour and echotexture; it measures 4.1 x 2.1 x 3.2 cm. No testicular microlithiasis or mass. Color Doppler images with spectral waveforms show presence of normal arterial and venous flow within the testicle. The epididymis is normal in size. Small cyst within the epididymal head measures up to 0.4 cm. Also, there is a 0.5 cm cyst of the appendix of the epididymis. Small hydrocele is present. The scrotal veins are in the normal size range. No evidence of inguinal hernia. IMPRESSION: 1. No acute findings within either testicle. No evidence of testicular torsion, orchitis or epididymitis. 2. Small bilateral hydroceles. 3. Small cysts of each epididymal head.
[2018-03-08 16:47] LABS: ABSOLUTE BASOPHIL COUNT 0.1 /CUMM (0.0-0.2); ABSOLUTE EOSINOPHIL COUNT 3.9 /CUMM (0.0-0.7); ABSOLUTE GRANULOCYTE CT 11.2 /CUMM (1.4-6.5); ABSOLUTE LYMPH COUNT 4.5 /CUMM (1.2-3.4); ABSOLUTE MONOCYTE COUNT 1.2 /CUMM (0.10-0.60); BASOPHIL % 0.3 % (0.0-2.0); EOSINOPHIL % 18.8 % (0-5); GRANULOCYTE % 53.9 % (42.2-75.2); MEAN CORPUSCULAR HGB 30.9 PG (27.0-31.0); MEAN CORPUSCULAR HGB CONC 33.8 G/DL (33.0-37.0); MEAN CORPUSCULAR VOLUME 91.3 FL (80.0-94.0); MEAN PLATELET VOLUME 7.9 FL (7.4-10.4); PLATELET COUNT 356 /CUMM (130-400); RBC DISTRIBUTION WIDTH 13.5 % (11.5-14.5); WHITE BLOOD CELL COUNT 20.8 /CUMM (4.8-10.8)
--- NOTE | 2018-03-08 18:35 | CT SCAN REPORT ---
EXAMINATION: CT ABDOMEN AND PELVIS WITH CONTRAST CLINICAL INFORMATION: Left groin pain and fever. Differential diagnosis includes hernia, diverticulitis and colitis. COMPARISON: 09/10/2016 TECHNIQUE: Multidetector volumetric imaging was performed of the abdomen and pelvis following IV administration of 95 mL of Optiray 320 intravenous contrast. Sagittal and coronal reformatted images were obtained on the technologist's workstation. DLP: 508.73 mGy-cm FINDINGS: LUNG BASES: The visualized lung bases are unremarkable. LIVER, GALLBLADDER, AND BILIARY TREE: The liver is normal in size, shape, and attenuation. No biliary ductal dilatation is present. A few scattered hypodensities within the hepatic parenchyma are unchanged and nonspecific, most likely relating to small cysts or hemangiomas. The gallbladder is unremarkable with no evidence of radiopaque gallstones, gallbladder wall thickening, or obvious pericholecystic inflammatory changes. PANCREAS: Unremarkable. SPLEEN: Unremarkable. ADRENAL GLANDS: Unremarkable. KIDNEYS AND URETERS: The kidneys are normal in size, shape, and attenuation. No hydronephrosis, hydroureter, or calculi seen. No perinephric stranding. Unchanged tiny hypodensity within the posterior cortex of the left kidney is too small to characterize. BLADDER: Unremarkable. GASTROINTESTINAL TRACT: The small and large bowel are unremarkable. The appendix is surgically absent. ABDOMINAL WALL: No significant hernia is appreciated. LYMPH NODES: Normal. VASCULAR: Minimal atherosclerosis abdominal aorta without evidence of aneurysm. PELVIC VISCERA: Calcifications of the prostate gland. No free fluid. OSSEOUS STRUCTURES: Degenerative changes of the spine including increasing Schmorl's nodes at L4. Hemangioma at T9 is again appreciated. No acute or suspicious osseous abnormality. IMPRESSION: 1. No evidence of acute abnormality within the abdomen or pelvis. 2. Tiny hypodensities within the liver and left kidney are unchanged. Although these are all too small to characterize, statistically they most likely represent small cysts or within the liver they could also represent small hemangiomas.
--- NOTE | 2018-03-08 20:13 | History & Physical ---
Gina Camara 03/08/182010: General Information and HPI MD Statement: I have seen and personally examined JOSÉ CHEUNG and documented this H&P. The patient is a 47 year old M who presented with a patient stated chief complaint of []. Source of Information: patient Exam Limitations: no limitations History of Present Illness: 47 yo gentleman with PMH significant for HTN presents to the ER with cheif complaint of left testiculr pain. The patient first noticed the pain at 10-11 o' clock in the morning today when he was getting out of his car. The pain started off as deep dull aching pain in testes, radiating up to the left flank as it worsened as the day progressed. The patient endorsed some chills with the pain. However, he did not report any documented fever. He also complains that he has to 'go the bathroom a lot of times even if he drinks one bottle of water'. He avoids drinking water on account of that and reports that he has a 'dark greenish' urine usually. He did notice he had one episode of 'orange' coloured urine today. 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 He is in a monogamous relationship with his . He is status post appendectomy and endorses a frequent 'phatom pain' in his RLQ. On further questioning, he mentions an intermittent 'massive' pain in his epigastric region for the past few years with some days worse than the others. He also complains of occassional diaarhea which he attributes to the consumption of caffeinated drinks. He denies chest pain, SOB, weakness, constipation, melena, blood in stool, acid reflux, appetite or weight changes. Allergies/Medications Allergies: Coded Allergies: poison amanda extract (Intermediate, HIVES 09/05/16) Home Med list Chlorthalidone 25 MG TABLET 1 TAB PO DAILY WATER RETENTION (Reported) Lisinopril 40 MG TABLET 1 TAB PO DAILY HEART HEALTH (Reported) Past History Travel History Traveled to [place] past 21 day No Medical History Neurological: NONE EENT: NONE Cardiovascular: hypertension Respiratory: asthma, bronchitis Gastrointestinal: NONE Hepatic: NONE Renal: NONE Musculoskeletal: NONE Psychiatric: NONE Endocrine: NONE Surgical History Surgical History: non-contributory Past Family/Social History Psychosocial History Smoking Status: Current Some Day Smoker ETOH Use: occasional use Illicit Drug Use: denies illicit drug use Review of Systems Review of Systems Constitutional: Reports: chills. Denies: diaphoresis, fever, malaise, unexplained weight loss. EENTM: Reports: no symptoms. Cardiovascular: Reports: no symptoms. Respiratory: Reports: no symptoms. GI: Reports: abdominal pain, diarrhea, changes in stool. Denies: constipation, melena, nausea, bloody stool, vomiting. Genitourinary: Reports: hematuria, pain. Musculoskeletal: Reports: no symptoms. Skin: Reports: no symptoms. Neurological/Psychological: Reports: no symptoms. Exam & Diagnostic Data Last 24 Hrs of Vital Signs/I&O Vital Signs Date Time Temp Pulse Resp B/P B/P Pulse O2 O2 Flow FiO2 Mean Ox Delivery Rate 03/08 2255 99.6 71 18 130/70 96 03/08 2109 99.4 70 20 127/61 98 Room Air 03/08 1933 98.8 71 16 130/77 98 Room Air 03/08 1932 98.8 03/08 1806 99.9 87 18 142/74 99 Room Air 03/08 1646 100.1 90 18 144/88 98 Room Air 03/08 1539 99 Room Air 03/08 1351 100.9 112 16 155/96 97 Room Air Intake & Output 03/09 0800 03/09 0000 03/08 1600 Intake Total 100 Output Total Balance 100 Intake, IV 100 Physical Exam General Appearance Alert, Oriented X3, Cooperative, No Acute Distress Skin No Rashes Skin Temp/Moisture Exam: Warm/Dry Sepsis Skin Exam (color): Normal for Ethnicity HEENT Atraumatic, PERRLA Neck Supple Cardiovascular Regular Rate, Normal S1, Normal S2, No Murmurs Lungs Clear to Auscultation Abdomen Normal Bowel Sounds, Soft, No Tenderness, No Hepatospenomegaly, NO rash/ swelling/tenderness in b/l testes Assessment/Plan Assessment: This is a 47 yo gentleman with PMH of hypertension, coming to the ER with complaint of left testicular pain. The pain came on suddenly in the morning and gradually got worse as the day progressed. He reports chills and an isolated episode of orange colored urine. He also reports an inetrnittent severe epigastric pain along with diarrhea. He also endorses polyuria at baseline which makes him hold him off from staying adequately hydrated. On examination, there is no abdominal tenderness. There is no testicular erythema, swelling or tenderness. His vitals were stable at Temp:99.4; pulse:70; RR 20; BP:120/61; pulse ox:98%. His labs are significant for a WBC of 20.8 with eosinophila of 18.8%. His urnalysis shows trace urine protein, large leukocyte esterase along with large urine Hb, 15-25 RBCs, >75 bacteria. His Serum Lipase levels are significantly high at 1237. CT scan abdomen/pelvis was essentially unremarkable. USG shows B/L hydroceles and small cysts of each epidydymis. Admit the patient to [facility] floor Prblem list: 1. ?UTI/Epidydymitis/Prostitis -No active symptom except chronically increased urinary frequency and an isolated episode of oraneg colores urine today. -Urinalysis suggestive of UTI -Start on Iv Ceftriaxone -iv fluids -Urology consult 2. Hypereosniphilia -Patient has history of seasonal allergies but has been asymptomatic this present season -Unclear etiology at present -Vague history of watery diarrhea and intermittent abdominal pain -? Helminthic infection vs Seasonal allergies vs idiopathic -ID consult 3. Elevated lipase -Incidental findng -Patient does complain of vague intermittent abdominal paina and watery diarrhea -Imaging negative for any evidence of changes in the pancreas -?Consider Chronic pancreatitis vs IBD -GI consult DVT prophylaxis: sc Lovenox Code status: FUll code As Ranked By This Provider Problem List: 1. Testicle pain 2. UTI (urinary tract infection) 3. Elevated lipase 4. Hypertension Core Measures/Misc (05/03) Acute Coronary Syndrome ACS Diagnosis: No Congestive Heart Failure Congestive Heart Failure Diagnosis No Cerebrovascular Accident CVA/TIA Diagnosis: No VTE (View Protocol) VTE Risk Factors Age>40 No Mechanical VTE Prophylaxis d/t N/A MechProphylax Ordered No VTE Pharm Prophylaxis d/t NA PharmProphylax ordered Sepsis (View protocol) Sepsis Present: No If YES complete Sepsis Event Note If YES complete Sepsis Event Note Jean Pierre Tabor 03/08/18 8112: Core Measures/Misc (05/03) Sepsis (View protocol) If YES complete Sepsis Event Note If YES complete Sepsis Event Note Resident Review Statement Resident Statement: examined this patient, discussed with internal medicine physician assistant, agreed with internal medicine physician assistant, reviewed images Other Findings: 47-year-old gentleman past medical history significant for hypertension came to ED for evaluation of worsening left-sided testicular pain. Stated that earlier today when he got out of the car he felt left-sided testicular pain which worsened and eventually started to radiate up to his left lower quadrant. 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 He did note that earlier today his urine was orange in color and there was only for one episode.He has been in his usual health which is severe seasonal allergies, sometimes having chronic mid epigastric pain and is quite nauseous and this is been going on for many years along with the fact he is also has increased urinary frequency when he drinks even 1 bottle of water. Also states that he has got phantom pain left over from his past appendectomy. Denies chills, headache, sore throat, chest pain, cough, SOB, abdominal pain, vomiting flank pain, dysuria or trauma. He has been in a monogamous relationship with his of 20 yrs. Vitals in ED T-max 100.9, heart rate 71, blood pressure 130/77, 98% on room air. Examination is alert and oriented. Genitalia: no significant testicular swelling noted, he did not have significant tenderness or bogginess on palpation. Rest of examination was unremarkable. labs significant for leukocytois of 20.8 with no bandemia and hypereosinophila of 18.8 and elevated lipase of 1237. UA positive for large leuk esterase and hemoglobinuria prob list: 1. UTI, possibly prostatitis 2. Elevated lipase 3. Hyperesosinophila plan: UTI/?prostatitis Admit to Gen med floor, vitals per protocol US r/o testicular torsion, no evidence evelia's gangrane on clinical examination or imaging Will start IV ceftriaxone pending blood/urine cultures ID and urology consult in am will hold off on his lisinopril and chlorothalidone and if his kidney function remains normal can restart. Hypereosinophila 2/2 to seasonal allergies vs idiopathic vs suspicion of HES given chronic abdominal pain, intermittant diarrhea. f/up Serum tryptase, vit B12 and IgE Elevated lipase unclear etiology at this time as he does not present clinically for acute pancreatitis and imaging also does not support this. No history of vomiting either. T2DM, Chronic Pancreatitis, pancreatitis tumors and calculus can also cause elevated lipase. Imaging does not show any calicification of the pancreas. DVTpxx: sc lovenox heart healthy diet full code [place] SERRANOSusymelanie 03/08/18 2331: Core Measures/Misc (05/03) Sepsis (View protocol) If YES complete Sepsis Event Note If YES complete Sepsis Event Note Attending MD Review Statement Attending Statement Attending MD Statement: examined this patient, discuss w/resident/PA/BEATER OUT LEVELING MACHINE, agreed w/resident/PA/BEATER OUT LEVELING MACHINE, reviewed EMR data (avail) Attending Assessment/Plan: 47M PMH HTN presenting with acute onset of left testicular pain radiating to left groin starting a few hours prior to arrival. Was getting out of his car when it started, in his usual state of health prior. Has had constant pain since then. Febrile to 100.9, stable vitals. Denies chills, headache, sore throat, chest pain, cough, SOB, abdominal pain, flank pain, dysuria, hematuria, constipation, diarrhea. Found to have evidence of UTI on urinalysis, WBC 20.8 with eosinophilia (has severe seasonal allergies), normal renal function, lipase 1200. Testicular ultrasound negative for torsion. CT abdomen negative. 1. UTI, possibly prostatitis 2. Elevated lipase 3. Eosinophilia 4. Left inguinal pain Will admit to medicine, urology consult, ID consult, cultures, Ceftriaxone.
[2018-03-08 22:55] VITALS: BP 130/70
--- NOTE | 2018-03-08 23:32 | Admission Certification ---
Admission Certification Certification Statement - As attending physician, I certify that at the time of - admission, based on clinical presentation, severity of - symptoms, need for further diagnostic testing and - therapeutic interventions, and risk of adverse outcomes - without in-hospital treatment, in my clinical assessment, - this patient requires an acute hospital stay for a minimum - of two nights or longer. I have also considered psychsocial - factors such as support system, advanced age, financial - issues, cognitive issues, and failed out-patient treatments, - past re-admission history, safety of patient, and lack of - compliance as applicable. Specific rationale supporting this admission is: Acute inguinal pain with UTI, WBC 20.8, fever
[2018-03-09 06:20] VITALS: BP 110/68
--- NOTE | 2018-03-09 07:20 | PN- Housestaff ---
See Addendum Subjective Follow-up For: UTI Subjective: No acute events overnight, afebrile. Patient states continues to have a left testicular pain which radiates to his left abdominal wall patient denies burning swelling or trauma to the testicular testicles. Patient is also complaining of urinary dribbling at the end of urination, urinary retention, which is been going on for quite some years. Patient states he had taken super beta prostate [id number] medication for prostate enlargement which provided some relief patient states he is sexually active with his of 18 years and does not use protection, has never been tested for chlamydia gonorrhea and syphilis. Denies fever, night sweats, chills Review of Systems Constitutional: Reports: see HPI. Objective Last 24 Hrs of Vital Signs/I&O Vital Signs Date Time Temp Pulse Resp B/P B/P Pulse O2 O2 Flow FiO2 Mean Ox Delivery Rate 03/09 0620 99.0 84 18 110/68 95 Room Air 03/08 2255 99.6 71 18 130/70 96 03/08 2109 99.4 70 20 127/61 98 Room Air 03/08 1933 98.8 71 16 130/77 98 Room Air 03/08 1932 98.8 03/08 1806 99.9 87 18 142/74 99 Room Air 03/08 1646 100.1 90 18 144/88 98 Room Air 03/08 1539 99 Room Air 03/08 1351 100.9 112 16 155/96 97 Room Air Intake & Output 03/09 0800 03/09 0000 03/08 1600 Intake Total 100 Output Total Balance 100 Intake, IV 100 Patient 207 lb Weight Weight Bed scale Measurement Method Physical Exam General Appearance: Alert, Oriented X3, Cooperative Neck: Supple, No LAD Cardiovascular: Regular Rate, Normal S1, Normal S2 Lungs: Clear to Auscultation, Normal Air Movement Abdomen: Normal Bowel Sounds, Soft, No Tenderness, No Masses Reproductive (MALE) Normal male genitalia, No penile lesions or discharge appreciated. , Left testicle tender to generalized palpation, no masses or swelling appreciated. Current Medications: Current Medications Sig/Roger Start time Last Medication Dose Route Stop Time Status Admin Acetaminophen 1,000 MG ONCE ONE 03/08 1530 DC 03/08 N/A 1 UNIT IV 03/08 1544 1645 Acetaminophen 0 .STK-MED ONE 03/08 1522 DC IV Ceftriaxone Sodium 1,000 MG DAILY 03/09 0900 AC IV Ceftriaxone Sodium 0 .STK-MED ONE 03/08 1900 DC .ROUTE Ceftriaxone Sodium 1,000 MG ONCE ONE 03/08 1830 DC 03/08 IV 03/08 1831 1904 Enoxaparin Sodium 40 MG DAILY 03/09 09 AC SC Sodium Chloride 1,000 ML BOLUS ONE 03/08 1500 DC 03/08 IV 03/08 1559 1645 Last 24 Hrs of Lab/Nilson Results Last 24 Hrs of Labs/Mics: Laboratory Tests 03/08/18 1748: Lactic Acid Cancelled 03/08/18 162: Anion Gap 16, Estimated GFR > 60, BUN/Creatinine Ratio 15.0, Glucose 98, Lactic Acid 1.4, Calcium 9.8, Total Bilirubin 0.3, AST 20, ALT 30, Alkaline Phosphatase 80, Troponin I < 0.01, Total Protein 8.1, Albumin 4.8, Globulin 3.3, Albumin/ Globulin Ratio 1.5, Lipase 1237 H, Vitamin B12 Pending, CBC w Diff MAN DIFF ORDERED, RBC 4.70, MCV 91.3, MCH 30.9, MCHC 33.8, RDW 13.5, MPV 7.9, Gran % 53.9 , Lymphocytes % 21.4, Monocytes % 5.6, Eosinophils % 18.8 H, Basophils % 0.3, Absolute Granulocytes 11.2 H, Segmented Neutrophils 56, Absolute Lymphocytes 4.5 H, Lymphocytes 20 L, Monocytes 4, Absolute Monocytes 1.2 H, Eosinophils 20 H, Absolute Eosinophils 3.9, Absolute Basophils 0.1, Platelet Estimate VERIFIED BY SMEAR, Normocytic RBCs VERIFIED, Normochromic RBCs VERIFIED, Fld Total RBCs Counted 100, Serum Alcohol < 10.0, Urinalysis LIGHT H, Urine Color YEL, Urine Clarity HAZY H, Urine pH 6.0, Ur Specific [place] 1.015, Urine Protein TRACE H, Urine Ketones NEG, Urine Nitrite NEG, Urine Bilirubin NEG, Urine Urobilinogen 0.2, Ur Leukocyte Esterase LARGE H, Ur Microscopic SEDIMENT EXAMINED, Urine RBC 15-25 H, Urine WBC > 75 H, Ur Epithelial Cells FEW, Urine Bacteria FEW H, Urine Hemoglobin LARGE H, Urine Glucose NEG Microbiology 03/08 1629 URINE ROUT: Urine Culture - RES 03/08 1629 URINE ROUT: GC DNA Probe - RECD 07/23 1629 URINE ROUT: Chlamydia DNA Probe ([facility]) - RECD 03/08 1629 BLOOD: Blood Culture - RECD 03/08 1448 BLOOD: Blood Culture - CAN Cancelled: SPECIMEN NEVER RECEIVED. REORDER IF NEEDED Assessment/Plan Assessment: Mr. Rios is a 47yoM with a PMHx significant for HTN, who presented to the ED on 03/08/18 with complaints of left testicular pain. The pain started off as deep dull aching pain in testes, radiating up to the left flank as it worsened as the day progressed, denies dysuria, uretheral discharge, or penile lesions. He also complains that he has to 'go the bathroom a lot of times even if he drinks one bottle of water'. Having to go the bathroom approx 3-4 times per hour. Problem List 1. Overactive Bladder 2. Enlarged Prostate #Overactive Bladder: possible etiologies BPH vs overactive bladder. Patient is presenting with a mixed picture of post-urination dribbling, urine retention, sensation of incomplete bladder. He is also presenting with increased episodes of urinating after consumption of water, or coffee. [facility] positive for enlarged prostate, with lesion at 10'o clock. Bedside bladder scan- Shows 0-5mL post-void retention Plan: -Start patient on Oxybutynin 5mg TID - urology recommends outpatient cystoscopy #BPH- most likely contributing to patient urinary symptoms. [facility] positive for enlarged prostate with lesion at 10'o clock. Normal PSA. -Start Tamsulosin 0.4mg Qdaily - Await urology input regarding lesion #Epididymitis- Most likely due to gram negative bacteria. Patients physical exam consistent with mild L. epididymitis. Elevated WBC, trending down since admission. Negative Gonococcal/Chlamydia. Urine culture showing no growth after 1 day. -Levofloxacin 500mg PO; completed 2 days of IV Ceftriaxone #Elevated Lipase: Idiopathic vs decreased excretion vs trauma. Elevated lipase upon admision, patient is asymptomatic, has no symptoms of pancreatitis, CT negative for abdominal pathology. -Continue to monitor levels and patient for symptoms DVT PPx: Lovenox Diet- Regular Code Status- Full code Problem List: 1. Testicle pain Pain Ratin Pain Location: left testicle Pain Goal: Remain pain free Pain Plan: tylenol Tomorrow's Labs & Rationales: CBC, BEP, LIpase
--- NOTE | 2018-03-09 07:21 | Discharge Summary ---
Hospital Course Allergies: Coded Allergies: poison amanda extract (Intermediate, HIVES 09/05/16)
--- NOTE | 2018-03-09 08:04 | Cons- Urology ---
General Information and HPI Consulting Request Date of Consult: 03/09/18 Requested By: Adeola Donovan MD Reason for Consult: L testicular pain and UTI Source of Information: patient Exam Limitations: no limitations History of Present Illness: This patient presented to the hospital with L testicular pain. His U/A was c/w UTI. He states that he has a long hx of urinary sx's but never f/u with urology because he was afraid of cystoscopy. He had a CT of the abd and pelvis which was negative. He also had a scrotal ultrasound which was negative. Allergies/Medications Allergies: Coded Allergies: poison amanda extract (Intermediate, HIVES 09/05/16) Home Med List: Chlorthalidone 25 MG TABLET 1 TAB PO DAILY WATER RETENTION (Reported) Lisinopril 40 MG TABLET 1 TAB PO DAILY HEART HEALTH (Reported) Current Medications: Current Medications Sig/Roger Start time Last Medication Dose Route Stop Time Status Admin Acetaminophen 1,000 MG ONCE ONE 03/08 1530 DC 03/08 N/A 1 UNIT IV 03/08 1544 1645 Acetaminophen 0 .STK-MED ONE 03/08 1522 DC IV Ceftriaxone Sodium 1,000 MG DAILY 03/09 09 AC IV Ceftriaxone Sodium 0 .STK-MED ONE 03/08 1900 DC .ROUTE Ceftriaxone Sodium 1,000 MG ONCE ONE 03/08 1830 DC 03/08 IV 03/08 1831 1904 Enoxaparin Sodium 40 MG DAILY 03/09 09 AC SC Sodium Chloride 1,000 ML BOLUS ONE 03/08 1500 DC 03/08 IV 03/08 1559 1645 Tamsulosin HCl 0.4 MG DAILY 03/09 09 AC PO Past History Medical History Blood Transfusion Hx: No Neurological: NONE EENT: NONE Cardiovascular: hypertension Respiratory: asthma, bronchitis Gastrointestinal: NONE Hepatic: LIVER SMALL CYST Renal: UTI PROSTATITIS DIFFICULTY URINATING FOR YEARS Musculoskeletal: NONE Psychiatric: NONE Endocrine: NONE Blood Disorders: NONE Cancer(s): NONE HTML DEVELOPER/Reproductive: NONE Surgical History Pertinent Surgical History: non-contributory Psychosocial History Smoking Status: Current Some Day Smoker ETOH Use: occasional use Illicit Drug Use: denies illicit drug use Exam & Diagnostic Data Vital Signs and I&O Vital Signs Date Time Temp Pulse Resp B/P B/P Pulse O2 O2 Flow FiO2 Mean Ox Delivery Rate 03/09 0620 99.0 84 18 110/68 95 Room Air 03/08 2255 99.6 71 18 130/70 96 03/08 2109 99.4 70 20 127/61 98 Room Air 03/08 1933 98.8 71 16 130/77 98 Room Air 03/08 1932 98.8 03/08 1806 99.9 87 18 142/74 99 Room Air 03/08 1646 100.1 90 18 144/88 98 Room Air 03/08 1539 99 Room Air 03/08 1351 100.9 112 16 155/96 97 Room Air Intake & Output 03/09 1600 03/09 0800 03/09 0000 03/08 1600 03/08 0800 03/08 0000 Intake Total 100 Output Total Balance 100 Intake, IV 100 Patient 207 lb Weight Weight Bed scale Measurement Method No acute distress Back: No CVA tenderness Abd: soft and non tender Genitalia: Normal phallus. Normal testicles. L epididymis is mildly enlarged, mildly indurated and mildly tender Laboratory Tests 03/08 03/08 1748 1629 Chemistry Sodium (137 - 145 mmol/L) 141 Potassium (3.5 - 5.1 mmol/L) 3.6 Chloride (98 - 107 mmol/L) 101 Carbon Dioxide (22 - 30 mmol/L) 25 Anion Gap (5 - 16) 16 BUN (9 - 20 mg/dL) 18 Creatinine (0.7 - 1.2 mg/dL) 1.2 Estimated GFR (>60 ml/min) > 60 BUN/Creatinine Ratio (7 - 25 %) 15.0 Glucose (65 - 99 mg/dL) 98 Lactic Acid (0.7 - 2.1 mmol/L) Cancelled 1.4 Calcium (8.4 - 10.2 mg/dL) 9.8 Total Bilirubin (0.2 - 1.3 mg/dL) 0.3 AST (17 - 59 U/L) 20 ALT (21 - 72 U/L) 30 Alkaline Phosphatase (< 127 U/L) 80 Troponin I (<0.11 ng/ml) < 0.01 Total Protein (6.3 - 8.2 g/dL) 8.1 Albumin (3.5 - 5.0 g/dL) 4.8 Globulin (1.9 - 4.2 gm/dL) 3.3 Albumin/Globulin Ratio (1.1 - 2.2 %) 1.5 Lipase (23 - 300 U/L) 1237 H Vitamin B12 (239 - 931 pg/mL) Pending Hematology CBC w Diff MAN DIFF ORDERED WBC (4.8 - 10.8 /CUMM) 20.8 H RBC (4.70 - 6.10 /CUMM) 4.70 Hgb (14.0 - 18.0 G/DL) 14.5 Hct (42 - 52 %) 43.0 MCV (80.0 - 94.0 FL) 91.3 MCH (27.0 - 31.0 PG) 30.9 MCHC (33.0 - 37.0 G/DL) 33.8 RDW (11.5 - 14.5 %) 13.5 Plt Count (130 - 400 /CUMM) 356 MPV (7.4 - 10.4 FL) 7.9 Gran % (42.2 - 75.2 %) 53.9 Lymphocytes % (20.5 - 51.1 %) 21.4 Monocytes % (1.7 - 9.3 %) 5.6 Eosinophils % (0 - 5 %) 18.8 H Basophils % (0.0 - 2.0 %) 0.3 Absolute Granulocytes (1.4 - 6.5 /CUMM) 11.2 H Segmented Neutrophils (42.2 - 75.2 %) 56 Absolute Lymphocytes (1.2 - 3.4 /CUMM) 4.5 H Lymphocytes (20.5 - 51.1 %) 20 L Monocytes (1.7 - 9.3 %) 4 Absolute Monocytes (0.10 - 0.60 /CUMM) 1.2 H Eosinophils (0 - 5.0 %) 20 H Absolute Eosinophils (0.0 - 0.7 /CUMM) 3.9 Absolute Basophils (0.0 - 0.2 /CUMM) 0.1 Platelet Estimate (ADEQUATE) VERIFIED BY SMEAR Normocytic RBCs VERIFIED Normochromic RBCs VERIFIED Other Body Source Fld Total RBCs Counted (%) 100 Toxicology Serum Alcohol (<10 MG/DL) < 10.0 Urines Urinalysis LIGHT H Urine Color (YEL,AMB,STR) YEL Urine Clarity (CLEAR) HAZY H Urine pH (5.0 - 8.0) 6.0 Ur Specific [place] (1.001 - 1.035) 1.015 Urine Protein (NEG,<30 MG/DL) TRACE H Urine Ketones (NEG) NEG Urine Nitrite (NEG) NEG Urine Bilirubin (NEG) NEG Urine Urobilinogen (0.1 - 1.0 EU/dl) 0.2 Ur Leukocyte Esterase (NEG) LARGE H Ur Microscopic SEDIMENT EXAMINED Urine RBC (0 - 5 /HPF) 15-25 H Urine WBC (0 - 2 /HPF) > 75 H Ur Epithelial Cells (NONE,FEW) FEW Urine Bacteria (NEG/NONE) FEW H Urine Hemoglobin (NEG) LARGE H Urine Glucose (N MG/DL) NEG Assessment/Plan Assessment/Plan Imp: 1. UTI 2. L epididymitis. Although scrotal ultrasound was read as negative exam is c/w mild L epididymitis Plan: 1. Continue abx. Could transition to po abx 2. When doing well on oral abx may be discharged and f/u in our office 3. He will need cystoscopy, either under local in the office or as outpatient surgery with anesthesia to exclude underlying cause for UTI such as urethral stricture 4. Agree with tamsulosin 0.4 mg qd Consult Acknowledgment - Thank you for your consult request.
[2018-03-09 09:24] LABS: ABSOLUTE BASOPHIL COUNT 0.1 /CUMM (0.0-0.2); ABSOLUTE EOSINOPHIL COUNT 3.3 /CUMM (0.0-0.7); ABSOLUTE GRANULOCYTE CT 7.3 /CUMM (1.4-6.5); ABSOLUTE LYMPH COUNT 3.2 /CUMM (1.2-3.4); ABSOLUTE MONOCYTE COUNT 0.9 /CUMM (0.10-0.60); BASOPHIL % 0.5 % (0.0-2.0); GRANULOCYTE % 49.1 % (42.2-75.2); HEMATOCRIT 41.7 % (42-52); MEAN CORPUSCULAR HGB 31.5 PG (27.0-31.0); MEAN CORPUSCULAR HGB CONC 34.3 G/DL (33.0-37.0); MEAN CORPUSCULAR VOLUME 91.9 FL (80.0-94.0); MEAN PLATELET VOLUME 7.9 FL (7.4-10.4); RBC DISTRIBUTION WIDTH 13.9 % (11.5-14.5); RED BLOOD CELL CT 4.54 /CUMM (4.70-6.10); WHITE BLOOD CELL COUNT 14.8 /CUMM (4.8-10.8)
[2018-03-09 10:33] LABS: EOSINOPHIL % 22.6 % (0-5)
[2018-03-09 10:34] LABS: PLATELET COUNT 329 /CUMM (130-400)
[2018-03-09 14:27] VITALS: BP 122/74
[2018-03-09 22:08] VITALS: BP 108/70
[2018-03-10 06:20] VITALS: BP 152/90
--- NOTE | 2018-03-10 07:43 | PN- Urology ---
Subjective Subjective: Feels better. No flank pain Objective Vital Signs and I&Os Vital Signs Date Time Temp Pulse Resp B/P B/P Pulse O2 O2 Flow FiO2 Mean Ox Delivery Rate 03/10 0620 98.4 77 18 152/90 97 Room Air 03/09 2208 98.2 69 18 108/70 97 Room Air 03/09 1427 99.4 81 18 122/74 98 Room Air 03/09 0923 84 102/78 03/09 0800 95 Room Air Intake & Output 03/10 0800 03/10 0000 03/09 1600 03/09 0800 03/09 0000 03/08 1600 Intake Total 1000 360 130 100 Output Total Balance 1000 360 130 100 Intake, IV 10 100 Intake, Oral 1000 360 120 Number 2 Bowel Movements Patient 207 lb 207 lb Weight Weight Reported by Patient Bed scale Measurement Method Back: no CVA tenderness Abd: soft and non tender Laboratory Tests 03/09 03/09 0830 0830 Chemistry Sodium (137 - 145 mmol/L) 143 Potassium (3.5 - 5.1 mmol/L) 3.8 Chloride (98 - 107 mmol/L) 103 Carbon Dioxide (22 - 30 mmol/L) 28 Anion Gap (5 - 16) 12 BUN (9 - 20 mg/dL) 13 Creatinine (0.7 - 1.2 mg/dL) 1.1 Estimated GFR (>60 ml/min) > 60 BUN/Creatinine Ratio (7 - 25 %) 11.8 Tryptase Pending Total PSA (0.00 - 4.00 ng/mL) 1.81 Hematology CBC w Diff NO MAN DIFF REQ WBC (4.8 - 10.8 /CUMM) 14.8 H RBC (4.70 - 6.10 /CUMM) 4.54 L Hgb (14.0 - 18.0 G/DL) 14.3 Hct (42 - 52 %) 41.7 L MCV (80.0 - 94.0 FL) 91.9 MCH (27.0 - 31.0 PG) 31.5 H MCHC (33.0 - 37.0 G/DL) 34.3 RDW (11.5 - 14.5 %) 13.9 Plt Count (130 - 400 /CUMM) 329 MPV (7.4 - 10.4 FL) 7.9 Gran % (42.2 - 75.2 %) 49.1 Lymphocytes % (20.5 - 51.1 %) 22.0 Monocytes % (1.7 - 9.3 %) 5.8 Eosinophils % (0 - 5 %) 22.6 H Basophils % (0.0 - 2.0 %) 0.5 Absolute Granulocytes (1.4 - 6.5 /CUMM) 7.3 H Absolute Lymphocytes (1.2 - 3.4 /CUMM) 3.2 Absolute Monocytes (0.10 - 0.60 /CUMM) 0.9 H Absolute Eosinophils (0.0 - 0.7 /CUMM) 3.3 Absolute Basophils (0.0 - 0.2 /CUMM) 0.1 Immunology IgE Pending Assessment/Plan Assessment/Plan Imp: 1. 5 mm L proximal ureteral stone. Pain significantly improved Plan: 1. From my point of view OK to discharge on flomax, and pain meds 2. Strain urine 3. f/u in my office in about 1 week. Will get KUB and repeat blood work at that time 4. If stone doesn't pass in 3-4 weeks then ureteroscopy and laser litho
--- NOTE | 2018-03-10 07:49 | PN- Urology ---
Subjective Subjective: Feels better. 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 lesion on [facility] Objective Vital Signs and I&Os Vital Signs Date Time Temp Pulse Resp B/P B/P Pulse O2 O2 Flow FiO2 Mean Ox Delivery Rate 03/10 0620 98.4 77 18 152/90 97 Room Air 03/09 2208 98.2 69 18 108/70 97 Room Air 03/09 1427 99.4 81 18 122/74 98 Room Air 03/09 0923 84 102/78 03/09 0800 95 Room Air Intake & Output 03/10 0800 03/10 0000 03/09 1600 03/09 0800 03/09 0000 03/08 1600 Intake Total 1000 360 130 100 Output Total Balance 1000 360 130 100 Intake, IV 10 100 Intake, Oral 1000 360 120 Number 2 Bowel Movements Patient 207 lb 207 lb Weight Weight Reported by Patient Bed scale Measurement Method Abd: soft and non tender Laboratory Tests 03/09 03/09 0830 0830 Chemistry Sodium (137 - 145 mmol/L) 143 Potassium (3.5 - 5.1 mmol/L) 3.8 Chloride (98 - 107 mmol/L) 103 Carbon Dioxide (22 - 30 mmol/L) 28 Anion Gap (5 - 16) 12 BUN (9 - 20 mg/dL) 13 Creatinine (0.7 - 1.2 mg/dL) 1.1 Estimated GFR (>60 ml/min) > 60 BUN/Creatinine Ratio (7 - 25 %) 11.8 Tryptase Pending Total PSA (0.00 - 4.00 ng/mL) 1.81 Hematology CBC w Diff NO MAN DIFF REQ WBC (4.8 - 10.8 /CUMM) 14.8 H RBC (4.70 - 6.10 /CUMM) 4.54 L Hgb (14.0 - 18.0 G/DL) 14.3 Hct (42 - 52 %) 41.7 L MCV (80.0 - 94.0 FL) 91.9 MCH (27.0 - 31.0 PG) 31.5 H MCHC (33.0 - 37.0 G/DL) 34.3 RDW (11.5 - 14.5 %) 13.9 Plt Count (130 - 400 /CUMM) 329 MPV (7.4 - 10.4 FL) 7.9 Gran % (42.2 - 75.2 %) 49.1 Lymphocytes % (20.5 - 51.1 %) 22.0 Monocytes % (1.7 - 9.3 %) 5.8 Eosinophils % (0 - 5 %) 22.6 H Basophils % (0.0 - 2.0 %) 0.5 Absolute Granulocytes (1.4 - 6.5 /CUMM) 7.3 H Absolute Lymphocytes (1.2 - 3.4 /CUMM) 3.2 Absolute Monocytes (0.10 - 0.60 /CUMM) 0.9 H Absolute Eosinophils (0.0 - 0.7 /CUMM) 3.3 Absolute Basophils (0.0 - 0.2 /CUMM) 0.1 Immunology IgE Pending GC - chlamydia probes negative. Urine culture: no growth after 24 hours Assessment/Plan Assessment/Plan Imp: 1. L epididymitis. Improved on abx 2. Lower urinary sx's, currently on flomax and oxybutynin 3. ? prostate lesion Plan: 1. OK to discharge home from my point of view 2. Would give 1 week of levaquin 3. f/u in my office in about 2 weeks. He will need repeat [facility], PSA and cystoscopy as outpatient
--- NOTE | 2018-03-10 07:53 | PN- Housestaff ---
See Addendum Subjective Follow-up For: epididymitis Subjective: No acute events overnight, afebrile. Patient states his urinary symptoms have had minimal improvement, is having up to urinate less. Patient is requesting prescription to be excused from heavy lifting while at work. Patient denies fever, night sweats, chills Review of Systems Constitutional: Reports: see HPI. Objective Last 24 Hrs of Vital Signs/I&O Vital Signs Date Time Temp Pulse Resp B/P B/P Pulse O2 O2 Flow FiO2 Mean Ox Delivery Rate 03/10 0903 84 148/98 03/10 08 98 Room Air 03/10 0620 98.4 77 18 152/90 97 Room Air 03/09 2208 98.2 69 18 108/70 97 Room Air 03/09 1427 99.4 81 18 122/74 98 Room Air Intake & Output 03/10 1600 03/10 0800 03/10 0000 Intake Total 1000 Output Total Balance 1000 Intake, Oral 1000 Number 2 Bowel Movements Patient 207 lb Weight Weight Reported by Patient Measurement Method Physical Exam General Appearance: Alert, Oriented X3, Cooperative Skin: No Rashes Cardiovascular: Regular Rate, Normal S1, Normal S2 Lungs: Clear to Auscultation, Normal Air Movement Abdomen: Normal Bowel Sounds, Soft, No Tenderness Reproductive (MALE) Minimal tenderness to palpation of left testicle, no edema or masses appreciated Current Medications: Current Medications Sig/Roger Start time Last Medication Dose Route Stop Time Status Admin Acetaminophen 1,000 MG ONCE ONE 03/10 1045 UNVr N/A 1 UNIT IV 03/10 1059 Ceftriaxone Sodium 2,000 MG DAILY 03/10 1042 UNVr IV Ceftriaxone Sodium 1,000 MG DAILY 03/09 09 DC 03/09 IV 0922 Enoxaparin Sodium 40 MG DAILY 03/09 0900 03/10 SC 0903 Levofloxacin 500 MG DAILY 03/09 0915 AC 03/10 PO 0903 Oxybutynin Chloride 5 MG TID 03/09 1508 AC 03/10 PO 0903 Patient Medication 1 ED ONE ONE 03/09 1700 DC 03/09 Teaching ED 03/09 1701 1727 Tamsulosin HCl 0.4 MG DAILY 03/09 09 AC 03/10 PO 0903 Last 24 Hrs of Lab/Nilson Results Last 24 Hrs of Labs/Mics: Laboratory Tests 03/10/18 0944: Sodium Pending, Potassium Pending, Chloride Pending, Carbon Dioxide Pending, Anion Gap Pending, BUN Pending, Creatinine Pending, BUN/Creatinine Ratio Pending , Lipase Pending, CBC w Diff Pending, WBC Pending, RBC Pending, Hgb Pending, Hct Pending, MCV Pending, MCH Pending, MCHC Pending, RDW Pending, Plt Count Pending, MPV Pending, Gran % Pending, Lymphocytes % Pending, Monocytes % Pending, Eosinophils % Pending, Basophils % Pending, Absolute Granulocytes Pending, Absolute Lymphocytes Pending, Absolute Monocytes Pending, Absolute Eosinophils Pending, Absolute Basophils Pending Assessment/Plan Assessment: Mr. Rios is a 47yoM with a PMHx significant for HTN, who presented to the ED on 03/08/18 with complaints of left testicular pain. The pain started off as deep dull aching pain in testes, radiating up to the left flank as it worsened as the day progressed, denies dysuria, uretheral discharge, or penile lesions. He also complains that he has to 'go the bathroom a lot of times even if he drinks one bottle of water'. Having to go the bathroom approx 3-4 times per hour. Problem List 1. Overactive Bladder 2. Enlarged Prostate #Overactive Bladder: possible etiologies BPH vs overactive bladder. Patient is presenting with a mixed picture of post-urination dribbling, urine retention, sensation of incomplete bladder. He is also presenting with increased episodes of urinating after consumption of water, or coffee. [facility] positive for enlarged prostate, with lesion at 10'o clock. Bedside bladder scan- Shows 0-5mL post-void retention Plan: - Continue patient on Oxybutynin 5mg TID - urology recommends outpatient cystoscopy for possible uretheral stents and workup of prostatic lesion, agree with current treatment #BPH- most likely contributing to patient urinary symptoms. [facility] positive for enlarged prostate with lesion at 10'o clock. Normal PSA. -Cont. Tamsulosin 0.4mg Qdaily - urology will work up lesion as outpatient #Epididymitis- Most likely due to gram negative bacteria. Patients physical exam consistent with mild L. epididymitis. Elevated WBC, trending down since admission. Negative Gonococcal/Chlamydia. Urine culture showing no growth after 1 day. -Levofloxacin 500mg PO; completed 2 days of IV Ceftriaxone #Elevated Lipase: Idiopathic vs decreased excretion vs trauma. Elevated lipase upon admision, patient is asymptomatic, has no symptoms of pancreatitis, CT negative for abdominal pathology. -Continue to monitor levels and patient for symptoms DVT PPx: Lovenox Diet- Regular Code Status- Full code Will discharge patient home today, with 5 days of Levaquin to complete 7 day course. Will also send Oxybutynin 5mg TID #90 and Tamsulosin 0.5mg #30. Patient given note to excuse from heavy lifting at work until thursday03/12/18. Patient is instructed to follow up with Dr. Randolph in 2 weeks for Prostate lesion workup and cystoscopy. Problem List: 1. Testicle pain Pain Ratin Pain Location: left testicle Pain Goal: Remain pain free Pain Plan: tylenol Tomorrow's Labs & Rationales: n/a
[2018-03-10 09:03] VITALS: BP 148/98
[2018-03-10] MEDS ORDERED: FLOMAX0.4 M1 PO ×2 (09:10→09:30)
[2018-03-10] MEDS ORDERED: Ditropan PO ×2 (09:10→09:30)
[2018-03-10] MEDS ORDERED: LEVAQUIN500 M1 PO ×2 (09:10→09:30)
--- NOTE | 2018-03-10 09:14 | Patient Discharge Instructions ---
Discharge Instructions General Discharge Information You were seen/treated for: Overactive Bladder and BPH You had these procedures: no procedures were performed Watch for these problems: Fever, Chest Pain, Shortness of Breath Special Instructions: Please take medications as directed. Follow up with PCP and Dr. Duron on prostatic lesion and cystoscopy. Diet Continue normal diet: Yes Recommended Diet: High Fiber with Probiotics Activity Full Activity/No Limits: Yes Activity Self Limited: No Acute Coronary Syndrome Inclusion Criteria At DC or during hospital stay patient has or had the following: ACS DIAGNOSIS No Discharge Core Measures Meds if any: Prescribed or Continued at Discharge Meds if any: NOT Prescribed or Continued at Discharge Congestive Heart Failure Inclusion Criteria At DC or during hospital stay patient has or had the following: CHF DIAGNOSIS No Discharge Core Measures Meds if any: Prescribed or Continued at Discharge Meds if any: NOT Prescribed or Continued at Discharge Cerebrovascular accident Inclusion Criteria At DC or during hospital stay patient has or had the following: CVA/TIA Diagnosis No Discharge Core Measures Meds if any: Prescribed or Continued at Discharge Meds if any: NOT Prescribed or Continued at Discharge Venous thromboembolism Inclusion Criteria VTE Diagnosis No VTE Type NONE VTE Confirmed by (Test) NONE Discharge Core Measures - Per Current guidelines, there needs to be overlap - treatment for the first 5 days of Warfarin therapy. - If discharged on Warfarin prior to 5 days of - overlap therapy, the patient will need to be - assessed for post discharge needs including - *Post discharge parental anticoagulation - *Warfarin and/or parental anticoagulation education - *Follow up date to check INR post discharge At least 5 days overlap therapy as Inpatient Yes Meds if any: Prescribed or Continued at Discharge Note: Overlap Therapy is Warfarin and Anticoagulant Meds if any: NOT Prescribed or Continued at Discharge
[2018-03-10 10:27] LABS: ABSOLUTE BASOPHIL COUNT 0.1 /CUMM (0.0-0.2); ABSOLUTE EOSINOPHIL COUNT 2.2 /CUMM (0.0-0.7); ABSOLUTE LYMPH COUNT 2.8 /CUMM (1.2-3.4); ABSOLUTE MONOCYTE COUNT 0.7 /CUMM (0.10-0.60); BASOPHIL % 0.9 % (0.0-2.0); GRANULOCYTE % 54.9 % (42.2-75.2); HEMATOCRIT 42.5 % (42-52); MEAN CORPUSCULAR HGB 30.8 PG (27.0-31.0); MEAN CORPUSCULAR HGB CONC 33.2 G/DL (33.0-37.0); MEAN CORPUSCULAR VOLUME 92.7 FL (80.0-94.0); MEAN PLATELET VOLUME 7.9 FL (7.4-10.4); PLATELET COUNT 329 /CUMM (130-400); RBC DISTRIBUTION WIDTH 13.6 % (11.5-14.5); RED BLOOD CELL CT 4.59 /CUMM (4.70-6.10); WHITE BLOOD CELL COUNT 12.7 /CUMM (4.8-10.8)
[2018-03-10] MEDS ORDERED: OXYBUTYNIN CHLOR5 M2 PO (10:31)
== END 2018-03-10 13:15 | DRG 501 ==
LOC: ERH 13:38 → 2NA 19:32 → ERHI 19:32 → 2NA 19:32 → ENRESERV 21:05 → ENTRNSPT 22:18 → EDTRNSPT 22:29 → EDTRNSPTSTS 22:29 → 2NA 22:41 → CMPTRNSPT 22:46 → ENPENDDIS 03-10 09:41 → 2NA 03-10 13:15
PROVIDERS: Hospitalist; Internal Medicine; Physician Assistant Medical
DX: N45.1 Epididymitis (principal); I10 Essential (primary) hypertension; D72.1 Eosinophilia; R10.32 Left lower quadrant pain; R74.8 Abnormal levels of other serum enzymes; N50.812 Left testicular pain; F17.210 Nicotine dependence, cigarettes, uncomplicated; J45.909 Unspecified asthma, uncomplicated; N40.1 Benign prostatic hyperplasia with lower urinary tract symptoms; R33.8 Other retention of urine; N32.81 Overactive bladder
CPT/HCPCS: 2NASP; 36415; 74177; 81001; 82436; 87040; 87086; 87491; 87591; 96361; 96374; 96375; G0480; J0131; J0696; J1650

== ENCOUNTER 2018-03-30 07:49 | Emergency (ER) | payer OTHER ==
[~2018-03-30] VITALS: Ht 172.7 cm; Wt 96.2 kg
[~2018-03-30 07:49] MED LIST changes: +CHLORTHALIDONE25 M1 PO; +CIPRO500 M1 PO; +Ditropan PO; +FLOMAX0.4 M1 PO; +LEVAQUIN500 M1 PO; +LISINOPRIL40 M1 PO; +OXYBUTYNIN CHLOR5 M2 PO
[2018-03-30 07:53] VITALS: BP 130/82
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
== END 2018-03-30 08:08 ==
LOC: ERH 07:49
DX: M50.20 Other cervical disc displacement, unspecified cervical region (principal)